=== PATIENT | female | born 1980 | race American Indian/Alaskan Native ===

== ENCOUNTER 2017-07-24 23:59 | Inpatient (IN) | payer BC ==
[2017-07-25] MEDS ORDERED: Ondansetron HCl/PF 4 MG/2 ML Vial IVP PRN ×3 (01:05→08:08)
[2017-07-25] MEDS ORDERED: Lidocaine 1% (PF) 30 ML VIAL SC PRN (01:05)
[2017-07-25] MEDS ORDERED: LR / Pitocin 40 units/1000 ml 1,000 ML IV PRN (01:05)
[2017-07-25] MEDS ORDERED: Bicitra 30 ML UDCUP PO SCH (01:15)
[2017-07-25] MEDS ORDERED: CEFAZOLIN/Water 2 GM/20 ML SYRINGE SLOW IVP SCH (01:15)
[2017-07-25] MEDS ORDERED: Lactated Ringer's 1,000 ML IV SCH (01:15)
[2017-07-25 01:23] VITALS: BMI 28.0
[2017-07-25] MEDS: Lactated Ringer's 1,000 ML IV SCH ×4 (02:02→22:09)
[2017-07-25 02:08] LABS: Hemoglobin 12.4 g/dL (12.0-16.0); Mean Corpuscular HGB CONC 34.9 g/dL (32.0-36.0); Mean Corpuscular Hemoglobin 30.9 pg (27.0-31.0); Mean Corpuscular Volume 88.5 fl (81.0-99.0); Mean Platelet Volume 6.5 fL (7.4-10.4); Platelet Count 226 thou/uL (130-400); RBC Distribution Width 12.9 % (11.5-14.5); Red Blood Cell (RBC) Count 4.01 mill/uL (4.20-5.40); White Blood Cell (WBC) Count 6.6 thou/uL (4.8-10.8)
[2017-07-25 02:55] LABS: HBSAg Index 0.15 S/CO (0-0.99); Hep B Surf Ag Non-Reactive S/CO (NonReactive)
[2017-07-25 06:25] LABS: Syphilis Antibody Nonreactive (Nonreactive); Syphilis Antibody Index 0.03 S/CO (<1.00 Non-Reactive)
[2017-07-25] MEDS ORDERED: CEFAZOLIN/Water 2 GM/20 ML SYRINGE ONE (07:03)
[2017-07-25] MEDS ORDERED: Bicitra 30 ML UDCUP ONE (07:03)
--- NOTE | 2017-07-25 07:18 | PDOC.LDHP ---
Labor and Delivery H&P Chief complaint: loss of fluid HPI: 37 yo @ 39w2d who presents with c/o ROM, now in early labor. Pt has h/o LTCS x1 for arrest of descent with failed attempted vacuum delivery. Current gestational age (weeks): 39 Due date: 07/30/17 Dating criteria: first trimester ultrasound Grav: 2 Para: 1 OB History Details: 1 LTCS @ 41 weeks for arrest of descent Current complications: none Abnormal US findings: No Past Medical History: Anemia Current medications: pre- vitamins, iron Previous surgical history: low tranverse CS Allergies/Adverse Reactions: Allergies Allergy/AdvReac Type Severity Reaction Status Date / Time No Known Allergies Allergy Verified 11/01/14 00:28 Social history: none - Physical Exam Vital signs reviewed and normal: yes General: breathing through contractions Heart: RRR Lungs: nonlabored breathing Abdomen: gravid Extremeties: no edema FHT: category 1 (120s, mod khadijah, +accels, no decels) Ko Olina contractions every: irregular > now q5 min - Vaginal Exam cm dilated: 3 (per computer network support specialist ) Effacement: 75% Station: -2 - OB Labs Blood type: O RH: positive Antibody Screen: negative HIV: negative RPR: negative HEPSAg: negative 1 hour GCT: negative GBS: negative Urine drug screen: not done Rubella: immune Additional Labs: NIPT, carrier screening negative - Assessment 39w2d IUP Early labor SROM Previous LTCS x1 - Plan Plan: to OR for section (Pt has been counseled on options of TOLAC vs RCD, Due to h/o arrest of descent and failed VAVD, desires RCD.), informed consent obtained, anesthesia consult for pain management
[2017-07-25] MEDS ORDERED: Ondansetron HCl/PF 4 MG/2 ML Vial ONE ×2 (07:57→15:26)
[2017-07-25] MEDS ORDERED: Morphine PF 1 MG/ML SYR ONE (07:57)
[2017-07-25] MEDS ORDERED: PHENYLEPHRINE-NS 100 MCG/ML 10 ML SYRINGE ONE ×2 (07:57→15:26)
[2017-07-25] MEDS ORDERED: Oxytocin 10 UNITS/ML VIAL ONE ×2 (07:57→08:25)
[2017-07-25] MEDS ORDERED: Ketorolac Tromethamine 30 MG/ML VIAL IVP PRN (08:08)
[2017-07-25] MEDS ORDERED: Meperidine HCl/PF 25 MG/ML VIAL SLOW IVP PRN (08:08)
[2017-07-25] MEDS ORDERED: Eucerin (Mineral Oil/Petrolatum,White) 30 gm Jar TOP PRN (08:08)
[2017-07-25] MEDS ORDERED: Naloxone HCl 0.4 mg/ml Vial IV PRN (08:08)
[2017-07-25] MEDS ORDERED: Promethazine HCl 25 MG SUPP PR PRN (08:08)
[2017-07-25] MEDS ORDERED: Naloxone HCl 0.4 mg/ml Vial IVP PRN ×2 (08:08)
[2017-07-25] MEDS ORDERED: Promethazine HCl 25 MG/ML VIAL IM PRN (08:08)
[2017-07-25] MEDS ORDERED: HYDROmorphone 2 MG/ML VIAL SLOW IVP PRN (08:08)
[2017-07-25] MEDS ORDERED: Communication Order-Pharmacy FS SCH (08:15)
[2017-07-25] MEDS ORDERED: Ketorolac Tromethamine 30 MG/ML VIAL IVP SCH (08:15)
[2017-07-25] MEDS ORDERED: Azithromycin 500 MG in Sodium Chloride 0.9% 250 ML 250 ML IVPB SCH (08:45)
--- NOTE | 2017-07-25 08:51 | PDOC.EVN ---
Event Note - Event Note Event Note: 07/25/17 @ 0835: CS ASSIST NOTE: Patient has handwritten OP note in the chart. I was called to assist with this patient's repeat CS. HX CS X 1 in active labor , 2nd stage, but declined . I assisted with repeat CS under SAB, pfannestiel approach. No vaginal hand assistance needed. Delivery by Dr Scruggs. Assist: Verde Anesthesia: SAB Apgars 8/9. Ancef given, and IV Zmax pending.
[2017-07-25] MEDS ORDERED: Ketorolac Tromethamine 30 MG/ML VIAL ONE (09:46)
[2017-07-25] MEDS ORDERED: Bisacodyl 10 MG SUPP PR PRN (12:08)
[2017-07-25] MEDS ORDERED: Acetaminophen 325 MG TAB PO PRN (12:08)
[2017-07-25] MEDS ORDERED: Methylergonovine 0.2 MG/ML VIAL IM PRN (12:08)
[2017-07-25] MEDS ORDERED: LR w/ Pitocin 40 units/1000 ML BAG IV SCH (12:08)
[2017-07-25] MEDS ORDERED: Misoprostol 200 MCG TAB PR SCH (12:30)
[2017-07-25] MEDS ORDERED: Acetaminophen 1,000 MG in Premix Bag 1 BAG IVPB PRN (12:38)
[2017-07-25] MEDS: diphenhydrAMINE 50 MG/ML VIAL IVP PRN ×3 (13:08→22:07)
[2017-07-25] MEDS ORDERED: Ibuprofen 800 MG TAB PO SCH (14:00)
--- NOTE | 2017-07-25 14:06 | OP ---
DATE OF PROCEDURE: 07/25/2017 PREOPERATIVE DIAGNOSES: 1. A 39-week 2 day intrauterine . 2. Previous delivery x1. 3. Spontaneous rupture of membranes. 4. Latent labor, progressed to active labor. 5. Declines trial of labor after . POSTOPERATIVE DIAGNOSES: 1. A 39-week 2 day intrauterine . 2. Previous delivery x1. 3. Spontaneous rupture of membranes. 4. Late in labor, progressed to active labor. 5. Declines trial of labor after . PROCEDURE: Repeat low transverse section via Pfannenstiel skin incision. SURGEON: Kaleigh Sebastian D.O. ASP NET C DEVELOPER: Mj Verde M.D. COMPLICATIONS: None. ANESTHESIA: Spinal. ESTIMATED BLOOD LOSS: 600 mL. IV FLUIDS: 1500 mL. URINE OUTPUT: 75 mL of clear urine. FINDINGS: A normal appearing uterus, fallopian tubes and ovaries bilaterally with the exception of a uterine window approximately 1 cm in height and 6 cm in width. Clear amniotic fluid. Normal appearing placenta. Viable female infant in cephalic presentation, Apgars 8 and 9, weighing 7 pounds and 10 ounces. INDICATIONS FOR THE PROCEDURE: Ms. Mary Alonzo is a 37-year-old G2, P1 at 39 weeks and 2 days who presented overnight to labor and delivery with complaints of rupture of membrane, which was confirmed on exam, patient was progressed into latent labor and was 3 cm on assessment. She then began experiencing increased pain immediately prior to being moved to the operating room for her desired repeat delivery. The patient was evaluated and found to be complete cervical dilation. The patient was again counseled on risk and benefit to try labor versus repeat delivery. Advocating for trial of labor as she had reached complete cervical dilation; however, the patient was adamant and desired a repeat delivery. She did have a history of the failed vacuum delivery for arrest of descent and very much desired a repeat delivery. PROCEDURE IN DETAIL: The patient was brought to the operating room and she was placed under spinal anesthesia, the patient was placed in supine position with a leftward tilt. She was given Ancef preoperatively. A Mariscal catheter was placed. She was prepped and draped in sterile fashion. An official timeout was performed. A Pfannenstiel skin incision was made using the scalpel and was carried down to underlying fascial layer. The fascia was incised in the midline using the Bovie and extended bilaterally using Garrett scissors. The superior aspect of the fascial incision was grasped using Katina clamps and tented upwards dissected free from the underlying rectus abdominis muscles. The same was performed to the inferior aspect of the fascial incision. The rectus abdominis muscles were using blunt dissection and the peritoneum was elevated using hemostats and incised sharply and extended bluntly. The Bryce O retractor was placed into the abdomen and appropriately secured. A bladder flap was created using Metzenbaum scissors and there was a uterine window approximately 1 cm in height and 5-6 mm in width. A low transverse hysterotomy was made using the scalpel. The amniotic membranes were ruptured upon entry, noting clear amniotic fluid. The infant was delivered in cephalic presentation without difficulty. Infant's cord was clamped and cut. was handed to the waiting Neonatology team. Cord blood was obtained. The placenta was delivered manually intact. Uterus was cleared of all clot and debris. The hysterotomy was closed in a running locking fashion using #1 Monocryl. The hysterotomy was hemostatic after closure. The fallopian tubes and ovaries were evaluated and normal in appearance. The pelvis was irrigated and cleared of all clot and debris. Again, the hysterotomy was evaluated and hemostatic. The Bryce O retractor and laparotomy sponge were removed. The peritoneum was closed in a running fashion using 3-0 Vicryl. The rectus abdominis muscles were evaluated hemostatic. The fascia was closed in a running fashion using 0 PDS. The subcutaneous layer was copiously irrigated and hemostatic using the Bovie. Subcutaneous layer was closed using 3-0 Vicryl and the skin was closed using 4-0 Monocryl and Dermabond. The patient tolerated the procedure well. There were no complications. The counts were correct x3. Mother and baby were transferred to recovery. [facility]
[2017-07-25] MEDS: Ketorolac Tromethamine 30 MG/ML VIAL IVP PRN (17:42)
[2017-07-25] MEDS ORDERED: HYDROcodone/Acetaminophen 5/325 mg Tablet PO PRN (20:15)
[2017-07-25] MEDS: Docusate Calcium (SURFAK) 240 MG CAP PO SCH (22:04)
[2017-07-25] MEDS: Simethicone Chewable 80 MG TAB PO PRN (22:06)
[2017-07-26] MEDS: Ketorolac Tromethamine 30 MG/ML VIAL IVP PRN (03:31)
[2017-07-26] MEDS: HYDROcodone/Acetaminophen 5/325 mg Tablet PO PRN ×4 (03:32→21:17)
[2017-07-26 05:48] LABS: #Eosinphils 0.2 thou/uL (0.0-0.7); #Lymphocytes 1.3 thou/uL (1.20-3.40); #Monocytes 0.9 thou/uL (0.11-0.59); #Neutrophils 7.1 thou/uL (1.40-6.50); %Basophils 0.2 % (0.0-1.0); %Eosinophils 1.7 % (0.0-10.0); %Lymphocytes 13.6 % (21.0-51.0); %Monocytes 9.6 % (0.0-10.0); %Neutrophils 74.9 % (42.0-75.0); Hemoglobin 10.1 g/dL (12.0-16.0); Mean Corpuscular HGB CONC 33.6 g/dL (32.0-36.0); Mean Corpuscular Hemoglobin 31.1 pg (27.0-31.0); Mean Corpuscular Volume 92.6 fl (81.0-99.0); Mean Platelet Volume 6.5 fL (7.4-10.4); Platelet Count 182 thou/uL (130-400); Red Blood Cell (RBC) Count 3.23 mill/uL (4.20-5.40); White Blood Cell (WBC) Count 9.5 thou/uL (4.8-10.8)
[2017-07-26] MEDS: Prenatal Vitamin 1 TAB PO SCH (08:23)
[2017-07-26] MEDS: Docusate Calcium (SURFAK) 240 MG CAP PO SCH ×2 (08:23→21:18)
[2017-07-26] MEDS: Lactated Ringer's 1,000 ML IV SCH ×2 (13:03→18:14)
[2017-07-26] MEDS: Ibuprofen 800 MG TAB PO SCH ×2 (13:05→21:18)
--- NOTE | 2017-07-26 13:06 | PDOC.PP ---
Post Progress Note Post Day #: 1 Subjective: Pain controlled. Minimal lochia, breast feeding. No flatus yet. PO intake tolerated: yes Flatus: no Ambulation: yes Vital Signs (12 hours) Temp Pulse Resp BP 07/26/17 08:15 97.8 F 77 20 101/69 07/26/17 04:00 98.1 F 78 16 113/67 Weight Weight 158 lb - Physical Examination General: NAD Cardiovascular: RRR Respiratory: non-labored breathing Abdominal: no distention, appropriately TTP Fundus firm & at: below umbilicus Extremities: negative homans (B) Skin: CS incision dry & intact Neurological: no gross focal deficits Psychiatric: A&Ox3 Result Diagrams: 07/26/17 05:20 Additional Labs: Post Labs Blood Type O POSITIVE 07/25/17 01:50 Hep Bs Antigen Non-Reactive S/CO (NonReactive) 07/25/17 01:50 (1) delivery, delivered, current hospitalization Code(s): O82 - ENCOUNTER FOR DELIVERY WITHOUT INDICATION Status: Acute - Assessment/Plan PPD 1 Doing well. Desires tp stay until Wednesday. Continue post /op care. PRN laxatives due to h/o constipation
[2017-07-26] MEDS: Milk Of Magnesia 30 ML UDCUP PO SCH (13:54)
[2017-07-26] MEDS: Simethicone Chewable 80 MG TAB PO PRN (17:27)
[2017-07-27] MEDS: Lactated Ringer's 1,000 ML IV SCH ×3 (05:19→18:25)
[2017-07-27] MEDS: HYDROcodone/Acetaminophen 5/325 mg Tablet PO PRN (05:43)
[2017-07-27] MEDS: Simethicone Chewable 80 MG TAB PO PRN ×2 (05:43→14:58)
[2017-07-27] MEDS: Ibuprofen 800 MG TAB PO SCH ×3 (05:43→21:17)
--- NOTE | 2017-07-27 09:31 | PDOC.PP ---
Post Progress Note Post Day #: 2 Subjective: Doing well. Minimal lochia. Pain controlled. PO intake tolerated: yes Flatus: yes Ambulation: yes Vital Signs (12 hours) Temp Pulse Resp BP 07/27/17 08:05 98.1 F 80 20 107/73 07/27/17 04:23 98.2 F 80 20 07/27/17 00:50 98.2 F 80 20 105/75 Weight Weight 158 lb - Physical Examination General: NAD Cardiovascular: RRR Respiratory: non-labored breathing Abdominal: no distention, appropriately TTP Fundus firm & at: below umbilicus Extremities: negative homans (B) Skin: CS incision dry & intact Neurological: no gross focal deficits Psychiatric: A&Ox3, normal affect Result Diagrams: 07/26/17 05:20 Additional Labs: Post Labs Blood Type O POSITIVE 07/25/17 01:50 Hep Bs Antigen Non-Reactive S/CO (NonReactive) 07/25/17 01:50 (1) delivery, delivered, current hospitalization Code(s): O82 - ENCOUNTER FOR DELIVERY WITHOUT INDICATION Status: Acute - Assessment/Plan Doing well. Desires to stay 3rd night. D/C tomorrow.
[2017-07-27] MEDS: Docusate Calcium (SURFAK) 240 MG CAP PO SCH ×2 (09:51→21:16)
[2017-07-27] MEDS: Prenatal Vitamin 1 TAB PO SCH (09:51)
[2017-07-28] MEDS: Ibuprofen 800 MG TAB PO SCH ×3 (06:15→21:12)
[2017-07-28] MEDS: Lactated Ringer's 1,000 ML IV SCH ×3 (06:35→17:07)
--- NOTE | 2017-07-28 08:10 | PDOC.PP ---
Post Progress Note Post Day #: 3 Subjective: Pain controlled. Minimal lochia. Breast feeding. Requesting to stay additional night if covered by insurance. PO intake tolerated: yes Flatus: yes Ambulation: yes Vital Signs (12 hours) Temp Pulse Resp BP Pulse Ox 07/27/17 21:17 98.2 F 95 18 123/69 98 Weight Weight 158 lb - Physical Examination General: NAD Cardiovascular: RRR Respiratory: non-labored breathing Abdominal: no distention, appropriately TTP Fundus firm & at: below umbilicus Extremities: negative homans (B) Skin: CS incision dry & intact Neurological: no gross focal deficits Psychiatric: A&Ox3 Result Diagrams: 07/26/17 05:20 Additional Labs: Post Labs Blood Type O POSITIVE 07/25/17 01:50 Hep Bs Antigen Non-Reactive S/CO (NonReactive) 07/25/17 01:50 (1) delivery, delivered, current hospitalization Code(s): O82 - ENCOUNTER FOR DELIVERY WITHOUT INDICATION Status: Acute - Assessment/Plan PPD 3 Doing well Pt requesting to stay 4th night if covered. Plan for d/c tomorrow PRN pain control
[2017-07-28] MEDS: Docusate Calcium (SURFAK) 240 MG CAP PO SCH ×2 (10:39→21:11)
[2017-07-28] MEDS: Prenatal Vitamin 1 TAB PO SCH (10:39)
[2017-07-28] MEDS: HYDROcodone/Acetaminophen 5/325 mg Tablet PO PRN (10:40)
[2017-07-28] MEDS: Milk Of Magnesia 30 ML UDCUP PO SCH (10:41)
[2017-07-29] MEDS: Ibuprofen 800 MG TAB PO SCH ×2 (06:09→15:54)
[2017-07-29] MEDS: Lactated Ringer's 1,000 ML IV SCH ×2 (08:45→09:36)
[2017-07-29 09:33] VITALS: BP 113/67; TEMP 97.7
[2017-07-29] MEDS: Docusate Calcium (SURFAK) 240 MG CAP PO SCH (09:45)
[2017-07-29] MEDS: Prenatal Vitamin 1 TAB PO SCH (09:45)
--- NOTE | 2017-07-29 13:02 | PDOC.PP ---
Post Progress Note Post Day #: 4 Subjective: Doing well. Minimal lochia. Pain controlled. Pumping. PO intake tolerated: yes Flatus: yes Ambulation: yes Vital Signs (12 hours) Temp Pulse Resp BP 07/29/17 08:00 97.7 F 67 14 07/29/17 07:30 97.7 F 67 14 113/67 Weight Weight 158 lb - Physical Examination General: NAD Cardiovascular: RRR Respiratory: non-labored breathing Abdominal: no distention, appropriately TTP Fundus firm & at: below umbilicus Extremities: negative homans (B) Skin: CS incision dry & intact, no rash Neurological: no gross focal deficits Psychiatric: A&Ox3, normal affect Result Diagrams: 07/26/17 05:20 Additional Labs: Post Labs Blood Type O POSITIVE 07/25/17 01:50 Hep Bs Antigen Non-Reactive S/CO (NonReactive) 07/25/17 01:50 (1) delivery, delivered, current hospitalization Code(s): O82 - ENCOUNTER FOR DELIVERY WITHOUT INDICATION Status: Acute - Assessment/Plan PPD 4 Doing well. D/C home with PRN pain meds. F/U 2 weeks incision check
[2017-07-30] MEDS ORDERED: Ibuprofen 800 MG TAB PO SCH (14:00)
== END 2017-07-29 16:35 | disposition home or self-care (01) | DRG 766 ==
LOC: L&D/OP 23:59 → L&D 07-25 01:01 → 3SW 07-25 11:50
PROVIDERS: ADMIT Obstetrics & Gynecology; ATTEND Obstetrics & Gynecology
PROC: 10D00Z1 Extraction of Products of Conception, Low, Open Approach (ICD-10-PCS; principal; 2017-07-25)
DX: O34.211 Maternal care for low transverse scar from previous cesarean delivery (principal); N85.8 Other specified noninflammatory disorders of uterus; Z3A.39 39 weeks gestation of pregnancy; Z37.0 Single live birth
CPT/HCPCS: 36415; 85025; 85027; 86780; 86850; 86900; 86901; 87340; 99285; J0131; J0456; J0595; J1200; J1885; J2274; J2310; J2405; J2590; J7050

== ENCOUNTER 2018-05-19 14:06 | Outpatient (CLI) | payer BC ==
--- NOTE | 2018-05-19 15:23 | ULT ---
LEFT LOWER EXTREMITY VENOUS DUPLEX EXAM: Deep veins of the left lower extremity were evaluated with color Doppler, spectral analysis, and comp ression. INDICATION: Left lower extremity pain, edema, and discoloration. FINDINGS: Deep veins of the left lower extremity show normal blood flow and compression. No evidence of DVT id entified. IMPRESSION: No evidence of left lower extremity deep vein thrombosis. POS: [facility]
== END 2018-05-19 14:07 | disposition home or self-care (01) ==
LOC: BICULT 14:06
PROVIDERS: ATTEND Family Medicine
DX: M79.662 Pain in left lower leg (principal)